=== PATIENT | female | born 1985 | race Caucasian/White ===

== ENCOUNTER 2018-07-27 18:42 | Emergency (ER) | payer MEDICAID ==
[~2018-07-27] VITALS: Ht 157.5 cm; Wt 78.5 kg
[2018-07-27 18:47] VITALS: Ht 157.5 cm; Wt 78.5 kg
[2018-07-27 19:49] VITALS: BP 125/79
== END 2018-07-27 19:50 | disposition home or self-care (01) ==
LOC: ED 18:42
DX: L03.211 Cellulitis of face (principal)
CPT/HCPCS: J3490